=== PATIENT | female | born 1995 | race Caucasian/White ===

== ENCOUNTER 2016-11-21 00:05 | Emergency (ER) | payer SELFPAY ==
[2016-11-21 00:08] VITALS: BP 114/70; BMI 33.1
[2016-11-21] MEDS ORDERED: ROBITUSSIN DM PO STA (00:39)
[2016-11-21] MEDS ORDERED: ROCEPHIN VIAL 1 GM IM ONE (00:39)
[2016-11-21] MEDS ORDERED: BENADRYL CAP 50 MG PO ONE (00:39)
[2016-11-21] MEDS ORDERED: TORADOL 60 MG VIAL IM ONE (00:39)
[2016-11-21] MEDS ORDERED: ROBITUSSIN DM ONE (00:44)
[2016-11-21] MEDS ORDERED: BENADRYL CAP/TAB 25 MG PO ONE (00:45)
[2016-11-21] MEDS ORDERED: ROCEPHIN VIAL 1 GM ONE (00:45)
[2016-11-21] MEDS ORDERED: TORADOL 60 MG VIAL ONE (00:45)
--- NOTE | 2016-11-21 00:47 | DR.GENAD ---
HPI - PCP Primary Care Physician: nfd - Complaint/Symptoms Chief Complaint Doctors Comments: Patient states she has been having a sore throat, runny nose, cough with yellow sputum, fever, for the past five days. States she has been taking over the counter medicines without improvement. She states her periods has been regular. She denies dysuria, hematuria, hemopysis, night sweats. States she do not have a local doctor. States she is not . Chief Complaint:: c/c/c, fever Self Treatment fo Chief Complaint: amoxicillin, otc meds - Nurses notes reviewed Nurses Notes Review: Yes - Source History Provided: Patient - Mode of Arrival Mode of Arrival: Ambulatory - Timing Onset of Chief Complaint: 11/16/16 Came on: Gradually - Duration Duration: Intermittent How lon Duration: Days - Location Location: cough with sore throat - Severity Severity: Moderate - Modifying Factors Worsens:: nothing Improves:: nothing PMH - PMH Past Medical History: No Past Medical History: Anemia Past Surgical History: No Surgical History: Ortho Surgery - Family History History of Family Medical Conditions: No Family Medical History: Diabetes Mellitus, [place], Coronary Artery Disease, Heart Failure, Hypertension - Social History Does patient currently use any type of tobacco product: No Have you used tobacco products in the last 12 months: No Type of Tobacco Use: None Does any household member use tobacco: No Alcohol Use: None Do you use any recreational Drugs:: No Lives With: Family Lives Where: Home - infectious screening Have you traveled outside the country in the last 6 months?: No Isolation: Standard ROS - Review of Systems Constitutional: No Symptoms Reported. negative: See HPI, Chills, Diaphoresis, Fever, Malaise, Weakness, Irritable, Fatigue, Loss of Appetite, Other Eyes: No Symptoms Reported ENTM: No Symptoms Reported, Nose Discharge, Nose Congestion, Throat Pain. negative: See HPI, Ear Pain, Ear Discharge, Pulling on Ears, Hearing Loss, Nose Pain, Epistaxis, Mouth Pain, Mouth Swelling, Loose Teeth, Drooling, Throat Swelling, Ear Foreign Body Respiratoy: No Symptoms Reported, Productive Cough. negative: See HPI, Non- Productive Cough, Moist Cough, Dry Cough, Hacking Cough, Barking Cough, Brassy Cough, Orthopnea, Short of Breath, Stridor, Wheezing, Hemoptysis, Other Cardiovascular: No Symptoms Reported. negative: See HPI, Chest Pain, Edema, Palpitations, Syncope, Cyanosis, Skin Mottling, Other Gastrointestinal/Abdominal: No Symptoms Reported. negative: See HPI, Abdominal Pain, Constipation, Diarrhea, Nausea, Vomiting, Food Intolerance, Other Genitourinary: No Symptoms Reported. negative: See HPI, Discharge, Dysuria, Frequency, Hematuria, Pain, Bleeding, Other Neurological: No Symptoms Reported Musculoskeletal: No Symptoms Reported Integumentary: No Symptoms Reported Hematologic/Lymphatic: No Symptoms Reported Endocrine: No Symptoms Reported Psychiatric: No Symptoms Reported. negative: See HPI, Anxiety, Depression, Hallucinations, Excessive crying, Suicidal, Other PE - Vital Signs Vitals: Temperature 99.6 F Pulse Rate 100 Respiratory Rate 16 Blood Pressure 114/70 O2 Sat by Pulse Oximetry 97 - General Limitations: No Limitations General Appearance: Alert, In No Apparent Distress - Head Head Exam: Normal Inspection, Atraumatic, Normocephalic - Eyes Eye exam: Normal Appearance, PERRL, EOMI. negative: Scleral Icterus, Conjunctival Injection, Nystagmus, Miosis, Mydrasis, Periorbital Swelling, Periorbital Tenderness, Other - ENT ENT Exam: Normal Exam, Normal Oropharynx, Normal External Ear Exam, Mucous Membranes Moist, TM's Normal Bilaterally External Ear Exam: Normal External Inspection TM/Canal Exam: Bilateral Normal Nose Exam: Normal Nose Exam Mouth Exam: Normal Inspection Throat Exam: Normal Inspection, Tonsillar Erythema, Tonsillomegaly, Tonsillar Exudate - Neck Neck Exam: Normal Inspection, Full ROM, Trachea Midline - Chest Chest Inspection: Normal Inspection, Symmetric Chest Wall Rise - Respiratory Respiratory Exam: Normal Lung Sounds Bilat Respiratory Exam: Bilateral Clear to Auscultation - Cardiovascular Cardiovascular Exam: Regular Rate, Normal Rhythm, Normal Heart Sounds - Abdominal Exam Abdominal Exam: Normal Inspection, Normal Bowel Sounds, Soft. negative: Distention, Tenderness, Guarding, Rebound, Rigidity, Dimnished Bowel Sounds, Hyperactive Bowel Sounds, Hypoactive Bowel Sounds, Organomegaly, Trauma, Incision, Ascites, Mass, Bruit, Pulsatile Mass, Hernia, Other Abdominal Tenderness: negative: RUQ, RLQ, LUQ, LLQ, Epigastrium, Suprapubic, Diffuse, Mild, Moderate, Severe, Other - Extremities Extremities Exam: Normal Inspection, Full ROM, Normal Capillary Refill - Back Back Exam: Normal Inspection, Full ROM. negative: Tenderness, (R) CVA Tenderness, (L) CVA Tenderness, Muscle Spasm, Paraspinal Tenderness, Vertebral Tenderness, Rashes, (R) Sciatic Notch Tenderness, (L) Sciatic Notch Tendern, (R ) Straight Leg Raise, (L) Straight Leg Raise, Other - Neurologic Neurological Exam: Alert, Oriented X3, CN II-XII Intact, Normal Gait, Reflexes Normal - Psychiatric Psychiatric Exam: Normal Affect, Normal Mood. negative: Depressed, Agitated, Anxious, Flat Affect, Manic, Homicidal Ideation, Suicidal Ideation, Other - Skin Skin Exam: Warm, Dry, Intact, Normal Color. negative: Rash, Cyanosis, Diaphoresis, Erythema, Pallor, Mottled, Other ROR - Labs Reviewed Laboratory Results Reviewed?: Yes (All labs and x-ray results reviewed and discussed with patient) Laboratory: Streptococcus Screen Negative (NEGATIVE) 11/21/16 00:43 - Diagnosis Discharge Problem: Bronchitis, Otitis media Sinusitis, acute Qualifiers: Sinusitis location: maxillary Pharyngitis Qualifiers: Pharyngitis/tonsillitis etiology: other specified organisms Qualified Code(s): J02.8 - Acute pharyngitis due to other specified organisms - Discharge Plan Disposition: HOME, SELF-CARE Condition: Stable Prescriptions: Ciprofloxacin HCl [CIPRO 500 MG TAB *] 500 mg PO Q12H #20 tab Loratadine [Allergy] 10 mg PO DAILY #30 tab - Follow ups/Referrals Follow ups/Referrals: NFD,None [Primary Care Provider] - 3 days JESSEE JEAN BAPTISTE [STAFF PHYSICIAN] - 3 days - Instructions Instructions: Acute Bronchitis, Sinusitis, Adult, Pharyngitis, Otitis Media, Adult
== END 2016-11-21 01:55 | disposition home or self-care (01) ==
LOC: ER 00:05
DX: J40 Bronchitis, not specified as acute or chronic (principal); J01.80 Other acute sinusitis; J02.8 Acute pharyngitis due to other specified organisms
CPT/HCPCS: 87070; 87880; 96372; 99282; 99283; J0696; J1885

== ENCOUNTER 2017-05-18 10:22 | Emergency (ER) | payer SELFPAY ==
[2017-05-18 10:30] VITALS: BP 106/56; BMI 37.4
--- NOTE | 2017-05-18 13:14 | DR.GENAD ---
HPI - PCP Primary Care Physician: nfd - Complaint/Symptoms Chief Complaint Doctors Comments: Patient reports that her symptoms onset was today. Chief Complaint:: patient stated she has had a fever,bodyaches,gagging and a sore throat that started when she clocked in at work. - Source History Provided: Patient - Mode of Arrival Mode of Arrival: Ambulatory - Timing Onset of Chief Complaint: 05/18/17 PMH - PMH Past Medical History: No Past Medical History: Anemia Past Surgical History: No Surgical History: Ortho Surgery - Family History History of Family Medical Conditions: No Family Medical History: Diabetes Mellitus, [place], Coronary Artery Disease, Heart Failure, Hypertension - Social History Does patient currently use any type of tobacco product: No Have you used tobacco products in the last 12 months: No Type of Tobacco Use: None Does any household member use tobacco: No Alcohol Use: None Do you use any recreational Drugs:: No Lives With: Family Lives Where: Home - infectious screening In the last 2 months have you had wt loss of >10#?: NO Have you had fever, night sweats or hemotysis?: No Have you traveled outside the country in the last 6 months?: No Isolation: Standard ROS - Review of Systems Eyes: No Symptoms Reported ENTM: No Symptoms Reported Respiratoy: No Symptoms Reported Cardiovascular: No Symptoms Reported Gastrointestinal/Abdominal: No Symptoms Reported Genitourinary: No Symptoms Reported Neurological: No Symptoms Reported Musculoskeletal: No Symptoms Reported Integumentary: No Symptoms Reported Hematologic/Lymphatic: No Symptoms Reported Endocrine: No Symptoms Reported Psychiatric: No Symptoms Reported All Other Systems: Reviewed and Negative PE - Vital Signs Vitals: Temperature 99.4 F Pulse Rate 128 Respiratory Rate 16 Blood Pressure 106/56 O2 Sat by Pulse Oximetry 98 - General General Appearance: Alert, In No Apparent Distress - Head Head Exam: Normal Inspection, Atraumatic - Eyes Eye exam: Normal Appearance, PERRL, EOMI - ENT ENT Exam: Normal Exam External Ear Exam: Normal External Inspection TM/Canal Exam: Bilateral Normal Nose Exam: Normal Nose Exam Mouth Exam: Normal Inspection Throat Exam: Normal Inspection - Neck Neck Exam: Normal Inspection - Chest Chest Inspection: Normal Inspection - Respiratory Respiratory Exam: Normal Lung Sounds Bilat Respiratory Exam: Bilateral Clear to Auscultation - Cardiovascular Cardiovascular Exam: Regular Rate - Abdominal Exam Abdominal Exam: Normal Inspection, Normal Bowel Sounds Abdominal Tenderness: negative: RUQ, RLQ, LUQ, LLQ, Epigastrium, Suprapubic, Diffuse, Mild, Moderate, Severe, Other - Extremities Extremities Exam: Normal Inspection, Full ROM - Back Back Exam: Normal Inspection, Full ROM - Neurologic Neurological Exam: Alert, Oriented X3, CN II-XII Intact - Psychiatric Psychiatric Exam: Normal Affect, Normal Mood - Skin Skin Exam: Warm, Dry, Intact Course - Reevaluation 1st: Improved - Education/Counseling Educated On: Treatment, Diagnosis, Prognosis, Needs for Follow Up ROR - Labs Reviewed Result Diagrams: 05/18/17 13:30 05/18/17 13:30 Laboratory: WBC 15.7 X10^3/uL (3.6-10.0) H 05/18/17 13:30 RBC 4.26 X10^6/uL (3.5-5.4) 05/18/17 13:30 Hgb 12.9 g/dL (12.0-16.0) 05/18/17 13:30 Hct 37.2 % (36.0-47.0) 05/18/17 13:30 MCV 87.4 fL (80.0-100.0) 05/18/17 13:30 MCH 30.3 pg (27.0-34.0) 05/18/17 13:30 MCHC 34.6 g/dL (33.0-35.0) 05/18/17 13:30 RDW 12.5 % (11.6-16.5) 05/18/17 13:30 Plt Count 254 X10^3/uL (150.0-450.0) 05/18/17 13:30 MPV 8.3 fL (7.4-11.0) 05/18/17 13:30 Neut % 82.2 % (42.0-75.0) H 05/18/17 13:30 Lymph % 9.2 % (21.0-51.0) L 05/18/17 13:30 Meigs % 7.8 % (0.0-13.0) 05/18/17 13:30 Eos % 0.2 % (0.9-2.9) L 05/18/17 13:30 Baso % 0.6 % (0.2-1.0) 05/18/17 13:30 Neut # 12.9 x10^3/uL (2.2-4.8) H 05/18/17 13:30 Lymph # 1.4 X10^3/uL (1.3-2.9) 05/18/17 13:30 Meigs # 1.2 x10^3/uL (0.3-0.8) H 05/18/17 13:30 Eos # 0.0 x10^3/uL (0.0-0.2) 05/18/17 13:30 Baso # 0.1 X10^3/uL (0.0-0.1) 05/18/17 13:30 Absolute Nucleated RBC 0.0 /100WBC 05/18/17 13:30 Sodium 141 mmol/L (136-145) 05/18/17 13:30 Corrected Sodium TNP 05/18/17 13:30 Potassium 3.9 mmol/L (3.5-5.1) 05/18/17 13:30 Chloride 105 mmol/L (98-107) 05/18/17 13:30 Carbon Dioxide 27.3 mmol/L (21-32) 05/18/17 13:30 BUN 7 mg/dL (7-18) 05/18/17 13:30 Creatinine 0.80 mg/dL (0.55-1.02) 05/18/17 13:30 Est GFR (MDRD) Af Amer > 60 (>60) 05/18/17 13:30 Est GFR (MDRD) Non-Af > 60 (>60) 05/18/17 13:30 Glucose 97 mg/dL (65-99) 05/18/17 13:30 Calcium 9.4 mg/dL (8.5-10.1) 05/18/17 13:30 Influenza Type A (PCR) Negative (NEGATIVE) 05/18/17 13:46 Influenza Type B (PCR) Negative (NEGATIVE) 05/18/17 13:46 Streptococcus Screen Negative (NEGATIVE) 05/18/17 13:46 - Diagnosis Discharge Problem: Influenza-like illness - Discharge Plan Condition: Stable - Follow ups/Referrals Follow ups/Referrals: NFD,None [Primary Care Provider] - 3 days - Instructions
[2017-05-18] MEDS ORDERED: TORADOL 30 MG VIAL IVP ONE (13:18)
[2017-05-18] MEDS ORDERED: NS 1000 ML 1,000 ML IV ONE (13:18)
[2017-05-18] MEDS ORDERED: NS 1000 ML 1,000 ML ONE (13:22)
[2017-05-18] MEDS ORDERED: TORADOL 30 MG VIAL ONE (13:23)
[2017-05-18 13:41] LABS: BASOPHILS # (AUTO) 0.1 X10^3/uL (0.0-0.1); BASOPHILS % (AUTO) 0.6 % (0.2-1.0); EOSINOPHILS % (AUTO) 0.2 % (0.9-2.9); HEMATOCRIT 37.2 % (36.0-47.0); HEMOGLOBIN 12.9 g/dL (12.0-16.0); LYMPHOCYTES # (AUTO) 1.4 X10^3/uL (1.3-2.9); LYMPHOCYTES % (AUTO) 9.2 % (21.0-51.0); MEAN CORPUSCULAR HEMOGLOBIN 30.3 pg (27.0-34.0); MEAN CORPUSCULAR HGB CONC 34.6 g/dL (33.0-35.0); MEAN CORPUSCULAR VOLUME 87.4 fL (80.0-100.0); MEAN PLATELET VOLUME 8.3 fL (7.4-11.0); MONOCYTES # (AUTO) 1.2 x10^3/uL (0.3-0.8); MONOCYTES % (AUTO) 7.8 % (0.0-13.0); NEUTROPHILS # (AUTO) 12.9 x10^3/uL (2.2-4.8); NEUTROPHILS % (AUTO) 82.2 % (42.0-75.0); PLATELET COUNT 254 X10^3/uL (150.0-450.0); RED BLOOD COUNT 4.26 X10^6/uL (3.5-5.4); RED CELL DISTRIBUTION WIDTH 12.5 % (11.6-16.5); WHITE BLOOD COUNT 15.7 X10^3/uL (3.6-10.0)
[2017-05-18 13:44] LABS: BLOOD UREA NITROGEN 7 mg/dL (7-18); CALCIUM 9.4 mg/dL (8.5-10.1); CARBON DIOXIDE 27.3 mmol/L (21-32); CHLORIDE 105 mmol/L (98-107); SODIUM 141 mmol/L (136-145); eGFR BLACK RACES > 60 (>60); eGFR NON BLACK RACES > 60 (>60)
== END 2017-05-18 15:07 | disposition home or self-care (01) ==
LOC: ER 10:36
DX: J11.1 Influenza due to unidentified influenza virus with other respiratory manifestations (principal); A49.1 Streptococcal infection, unspecified site
CPT/HCPCS: 36415; 80048; 85025; 87070; 87077; 87186; 87502; 87880; 96365; 96374; 99282; 99283; A4222; J1885

== ENCOUNTER 2017-07-24 11:48 | Emergency (ER) | payer SELFPAY ==
[2017-07-24 12:01] VITALS: BP 106/59; BMI 39.9
[2017-07-24] MEDS ORDERED: ADACEL TDaP IM ONE ×2 (14:23→14:27)
[2017-07-24] MEDS ORDERED: BACTROBAN OINT TOP ONE (14:24)
[2017-07-24] MEDS ORDERED: KEFLEX CAP 500 MG PO ONE ×2 (14:24→14:27)
--- NOTE | 2017-07-24 14:29 | DR.GENAD ---
HPI - PCP Primary Care Physician: NFD - Complaint/Symptoms Chief Complaint Doctors Comments: Patient states she burnt her right arm two nights ago when she was cooking pizza and she put her arm on the hot stove with burn to the right forearm. States she has been putting Vaseline on the burn but it has gotten worst. She denies fever, chills, nausea or vomiting. States she is unsure of her last tetanus shot. states she does not have a local doctor. states the pain is 2-3 of 10. States her last period is now. Chief Complaint:: PT STATES SHE BURNT HER RIGHT ARM TWO NIGHTS AGO. Self Treatment fo Chief Complaint: VASELINE - Nurses notes reviewed Nurses Notes Review: Yes - Source History Provided: Patient - Mode of Arrival Mode of Arrival: Ambulatory - Timing Onset of Chief Complaint: 07/22/17 - Duration Duration: Constant How lon Duration: Days - Location Location: right forearm - Severity Severity: Moderate - Modifying Factors Worsens:: nothing Improves:: nothing PMH - PMH Past Medical History: No Past Medical History: Anemia Past Surgical History: Yes Surgical History: Ortho Surgery Past Surgical History Comment: WRIST FX REPAIR - Family History History of Family Medical Conditions: Yes Family Medical History: Diabetes Mellitus, [place], Coronary Artery Disease, Heart Failure, Hypertension - Social History Alcohol Use: None Do you use any recreational Drugs:: No Lives With: Family Lives Where: Home - infectious screening In the last 2 months have you had wt loss of >10#?: NO Have you had fever, night sweats or hemotysis?: No Have you traveled outside the country in the last 6 months?: No Isolation: Standard ROS - Review of Systems Constitutional: No Symptoms Reported. negative: See HPI, Chills, Diaphoresis, Fever, Malaise, Weakness, Irritable, Fatigue, Loss of Appetite, Other Eyes: No Symptoms Reported ENTM: No Symptoms Reported, Nose Discharge, Nose Congestion Respiratoy: No Symptoms Reported Cardiovascular: No Symptoms Reported Gastrointestinal/Abdominal: No Symptoms Reported. negative: See HPI, Abdominal Pain, Constipation, Diarrhea, Nausea, Vomiting, Food Intolerance, Other Genitourinary: No Symptoms Reported Neurological: No Symptoms Reported. negative: See HPI, Anxiety, Depressed, Emotional Problems, Headache, Numbness, Paresthesia, Pre-existing Deficit, Seizure, Tingling, Tremors, Weakness, Dizziness, Problems Walking, Speech Problem, Other Musculoskeletal: No Symptoms Reported, Left, Arm Integumentary: No Symptoms Reported Hematologic/Lymphatic: No Symptoms Reported. negative: See HPI, Anemia, Blood Clots, Easy Bleeding, Easy Bruising, Swollen Glands, Lymphadenopathy, Other Endocrine: No Symptoms Reported. negative: See HPI, Excessive Sweating, Flushing, Intolerance to Cold, Intolerance to Heat, Increased Hunger, Increased Thirst, Increased Urine, Unexplained Weight Gain, Unexplained Weight Loss, Failure to Thrive, Decreased Appetite, Other Psychiatric: No Symptoms Reported. negative: See HPI, Anxiety, Depression, Hallucinations, Excessive crying, Suicidal, Other PE - Vital Signs Vitals: Temperature 98.6 F Pulse Rate 81 Respiratory Rate 20 Blood Pressure 106/59 O2 Sat by Pulse Oximetry 98 - General Limitations: No Limitations General Appearance: Alert, In Distress (moderate) - Head Head Exam: Normal Inspection, Atraumatic, Normocephalic - Eyes Eye exam: Normal Appearance, PERRL, EOMI. negative: Scleral Icterus, Conjunctival Injection, Nystagmus, Miosis, Mydrasis, Periorbital Swelling, Periorbital Tenderness, Other - ENT ENT Exam: Normal Exam, Normal Oropharynx, Normal External Ear Exam, Mucous Membranes Moist, TM's Normal Bilaterally External Ear Exam: Normal External Inspection TM/Canal Exam: Bilateral Normal Nose Exam: Normal Nose Exam Mouth Exam: Normal Inspection. negative: Drooling, Trismus, Lip Swelling, Tongue Elevation, Tongue Swelling, Laceration, Other Throat Exam: Normal Inspection. negative: Tonsillar Erythema, Tonsillomegaly, Tonsillar Exudate, R Peritonsillar Mass, L Peritonsillar Mass, Muffled Voice, Other - Neck Neck Exam: Normal Inspection, Full ROM, Trachea Midline - Chest Chest Inspection: Normal Inspection, Symmetric Chest Wall Rise - Respiratory Respiratory Exam: Normal Lung Sounds Bilat Respiratory Exam: Bilateral Clear to Auscultation - Cardiovascular Cardiovascular Exam: Regular Rate, Normal Rhythm, Normal Heart Sounds - Abdominal Exam Abdominal Exam: Normal Inspection, Normal Bowel Sounds, Soft Abdominal Tenderness: negative: RUQ, RLQ, LUQ, LLQ, Epigastrium, Suprapubic, Diffuse, Mild, Moderate, Severe, Other - Extremities Extremities Exam: Normal Inspection, Full ROM, Tenderness (right forearm with 3x6 cm burn with erythema, crusting;), Normal Capillary Refill - Back Back Exam: Normal Inspection, Full ROM. negative: Tenderness, (R) CVA Tenderness, (L) CVA Tenderness, Muscle Spasm, Paraspinal Tenderness, Vertebral Tenderness, Rashes, (R) Sciatic Notch Tenderness, (L) Sciatic Notch Tendern, (R ) Straight Leg Raise, (L) Straight Leg Raise, Other - Neurologic Neurological Exam: Alert, Oriented X3, CN II-XII Intact, Normal Gait, Reflexes Normal - Psychiatric Psychiatric Exam: Normal Affect, Normal Mood. negative: Depressed, Agitated, Anxious, Flat Affect, Manic, Homicidal Ideation, Suicidal Ideation, Other - Skin Skin Exam: Warm, Dry, Intact, Normal Color - Diagnosis Discharge Problem: Cellulitis of right arm Superficial burn of right upper arm Qualifiers: Encounter type: initial encounter Qualified Code(s): T22.131A - Burn of first degree of right upper arm, initial encounter Second degree burn of arm Qualifiers: Burn of hand location: unspecified site - Discharge Plan Disposition: 01 HOME, SELF-CARE Condition: Stable Prescriptions: Cephalexin [KEFLEX CAP 500 MG *] 500 mg PO TID #30 cap Ibuprofen [MOTRIN TAB 800 MG *] 800 mg PO BID PRN #30 tab PRN Reason: Pain/Inflammation Mupirocin Oint [BACTROBAN OINT 2%] 1 applic EXT BID #22 gm - Follow ups/Referrals Follow ups/Referrals: NFD,None [Primary Care Provider] - 3 days BAY VIZCARRA [STAFF PHYSICIAN] - 3 days - Instructions Instructions: Burn Care, [id number], Second-Degree Burn, Cellulitis, Adult, [id number]
== END 2017-07-24 14:53 | disposition home or self-care (01) ==
LOC: ER 12:09
DX: T22.131A Burn of first degree of right upper arm, initial encounter (principal); T23.209A Burn of second degree of unspecified hand, unspecified site, initial encounter; L03.119 Cellulitis of unspecified part of limb; X10.1XXA Contact with hot food, initial encounter
CPT/HCPCS: 90471; 99282